=== PATIENT | female | born 2000 | race Caucasian/White ===

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

== ENCOUNTER 2023-11-13 20:20 | Emergency (ER) | payer SELFPAY ==
[2023-11-13] MEDS ORDERED: Sodium Chloride 0.9% 10 ML Syringe FLUSH PRN (20:21)
[2023-11-13] MEDS ORDERED: Sodium Chloride 0.9% 2.5 ML Syringe FLUSH PRN (20:21)
[2023-11-13 20:46] LABS: HEMATOCRIT 38.7 % (37.0-47.0); HEMOGLOBIN 13.7 g/dL (12.0-16.0); MEAN CORPUSCULAR HEMOGLOBIN 30.9 pg (28.0-32.0); MEAN CORPUSCULAR HGB CONC 35.4 g/dL (32.0-36.0); MEAN CORPUSCULAR VOLUME 87.4 fL (83.0-99.0); MEAN PLATELET VOLUME 8.4 fL (9.4-12.3); PLATELET COUNT,PLT 282 K/uL (150-400); RED BLOOD CELL COUNT 4.43 M/uL (4.10-5.30); WHITE BLOOD CELL COUNT,WBC 14.64 K/uL (3.9-11.3)
[2023-11-13 21:13] LABS: ALANINE AMINOTRANSFERASE,ALT 20 IU/L (14-63); ALBUMIN 4.1 g/dL (3.4-5.0); ALKALINE PHOSPHATASE 101 U/L (46-116); ASPARTATE AMNIOTRANSFERASE,AST 15 IU/L (15-37); BILIRUBIN TOTAL 0.7 mg/dL (0.2-1.0); BLOOD UREA NITROGEN,BUN 15 mg/dL (7.0-18.0); CALCIUM 9.4 mg/dL (8.5-10.1); CARBON DIOXIDE,CO2 25.4 mmol/L (21.0-32.0); CHLORIDE,CL 104 mmol/L (98-107); EST CRCL DRUG DOSING (CG) 79.37 mL/min; GLUCOSE RANDOM 94 mg/dL (74-106); POTASSIUM,K 3.7 mmol/L (3.5-5.1); PROTEIN TOTAL,TP 8.4 g/dL (6.4-8.2); SODIUM,NA 142 mmol/L (136-145)
[2023-11-13 21:24] LABS: ESTIMATED GFR 82 mL/min (>60)
[2023-11-13] MEDS ORDERED: Sodium Chloride 0.9% 1,000 ML IV STA (21:43)
[2023-11-13 21:46] LABS: BASOPHILS ABSOLUTE MAN 0.15 K/uL (0.00-0.20); BASOPHILS PERCENT MAN 1 % (0-1); EOSINOPHILS ABSOLUTE MAN 0.73 K/uL (0.00-0.45); EOSINOPHILS PERCENT MAN 5 % (0-6); LYMPHOCYTES ABSOLUTE MAN 4.54 K/uL (1.00-4.80); LYMPHOCYTES PERCENT MAN 31 % (24-44); MONOCYTES ABSOLUTE MAN 1.02 K/uL (0.00-0.80); MONOCYTES PERCENT MAN 7 % (0-8); SEG NEUTROPHILS PERCENT MAN 56 % (41-71)
== END 2023-11-13 22:46 | disposition home or self-care (01) ==
LOC: MW.ED 20:20
DX: R07.9 Chest pain, unspecified (principal)
CPT/HCPCS: 36415; 71046; 71046-26; 80053; 84484; 85025; 85379; 93005; 93010; 99283; 99285

== ENCOUNTER 2025-07-19 17:39 | Emergency (ER) | payer OTHER ==
[2025-07-19] MEDS ORDERED: Sodium Chloride 0.9% 10 ML Syringe FLUSH PRN (18:23)
[2025-07-19] MEDS ORDERED: Sodium Chloride 0.9% 2.5 ML Syringe FLUSH PRN (18:23)
[2025-07-19 19:05] LABS: BASOPHILS ABSOLUTE AUTO 0.05 K/uL (0.00-0.20); BASOPHILS PERCENT AUTO 0.7 % (0.0-1.0); EOSINOPHILS ABSOLUTE AUTO 0.08 K/uL (0.00-0.45); EOSINOPHILS PERCENT AUTO 1.1 % (0.0-6.0); IMMATURE GRAN ABSOLUTE AUTO 0.01 K/uL (0.00-0.05); IMMATURE GRAN PERCENT AUTO 0.1 % (0.0-0.4); LYMPHOCYTES ABSOLUTE AUTO 2.62 K/uL (1.00-4.80); LYMPHOCYTES PERCENT AUTO 36.0 % (24.0-44.0); MEAN PLATELET VOLUME 9.3 fL (9.4-12.3); MONOCYTES ABSOLUTE AUTO 0.77 K/uL (0.00-0.80); MONOCYTES PERCENT AUTO 10.6 % (0.0-8.0); NEUTROPHILS ABSOLUTE AUTO 3.75 K/uL (1.80-7.70); NEUTROPHILS PERCENT AUTO 51.5 % (41.0-71.0); NRBC ABSOLUTE 0.00 K/uL (0.00-0.02); NRBC PERCENT 0.0 /100WBC (0.0-0.2); PLATELET COUNT,PLT 258 K/uL (150-400); RED BLOOD CELL COUNT 4.45 M/uL (4.10-5.30); WHITE BLOOD CELL COUNT,WBC 7.28 K/uL (3.9-11.3)
[2025-07-19] MEDS: Ampicillin/Sulbactam Na 3 GM in Sodium Chloride 0.9% 100 ML IV ONE (19:08)
[2025-07-19] MEDS: Ketorolac 30 MG/ML SDV IVPUSH ONE (19:09)
[2025-07-19 19:18] LABS: A/G RATIO 1.3 (0.9-1.6); ALANINE AMINOTRANSFERASE,ALT 34.0 IU/L (14-63); ASPARTATE AMNIOTRANSFERASE,AST 30.0 IU/L (15-37); BILIRUBIN TOTAL 0.8 mg/dL (0.2-1.0); BLOOD UREA NITROGEN,BUN 15.0 mg/dL (7.0-18.0); CARBON DIOXIDE,CO2 24.1 mmol/L (21.0-32.0); CHLORIDE,CL 103.0 mmol/L (98-107); CREATININE 0.9 mg/dL (0.6-1.0); EST CRCL DRUG DOSING (CG) 88.09 mL/min; ESTIMATED GFR 92.0 mL/min (>60); GLUCOSE RANDOM 95.0 mg/dL (74-106); POTASSIUM,K 4.2 mmol/L (3.5-5.1); PROTEIN TOTAL,TP 8.6 g/dL (6.4-8.2); SODIUM,NA 139.0 mmol/L (136-145)
== END 2025-07-19 20:12 | disposition home or self-care (01) ==
LOC: MW.ED 17:39
DX: S61.451A Open bite of right hand, initial encounter (principal); Z75.3 Unavailability and inaccessibility of health-care facilities; E86.0 Dehydration; Z79.899 Other long term (current) drug therapy; W55.01XA Bitten by cat, initial encounter
CPT/HCPCS: 36415; 73130; 80053; 85025; 96365; 96375; 99283; J0295; J1885; J7030

== ENCOUNTER 2025-07-20 18:02 | Emergency (ER) | payer OTHER | END 2025-07-20 18:16 | disposition home or self-care (01) | LOC: MW.ED 18:02 | DX: S61.451D Open bite of right hand, subsequent encounter (principal); Z79.899 Other long term (current) drug therapy; W55.01XD Bitten by cat, subsequent encounter | CPT/HCPCS: 99282; 99283 ==